=== PATIENT | female | born 1935 | race Hispanic/Latino ===

== ENCOUNTER 2019-11-02 11:49 | Emergency (ER) | payer MEDICARE | END 2019-11-02 14:56 | disposition left against medical advice (07) | LOC: EDH 11:49 | DX: M48.54XA Collapsed vertebra, not elsewhere classified, thoracic region, initial encounter for fracture (principal); J43.9 Emphysema, unspecified; Z88.0 Allergy status to penicillin; Z72.0 Tobacco use; Z88.6 Allergy status to analgesic agent | CPT/HCPCS: 71250; 93005 ==